=== PATIENT | male | born 1990 | race Hispanic/Latino ===

== ENCOUNTER 2024-10-16 14:41 | Emergency (ER) | payer SELFPAY ==
[~2024-10-16] VITALS: Ht 180.3 cm; Wt 86.2 kg
[2024-10-16] MEDS: FAMOTIDINE 20MG VIAL IV ONE (15:25)
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
[2024-10-16] MEDS ORDERED: PRED5TAB PO (16:26)
[2024-10-16] MEDS ORDERED: LORA10TA7 PO (16:26)
[2024-10-16] MEDS: 0.9%NACL 1000ML 1,000 ML IV ONE (16:35)
[2024-10-16 16:37] VITALS: BP 106/68; PULSE 81; RESP 16; TEMP 98.3; O2SAT 98
--- NOTE | 2024-10-16 16:37 | NUR ---
pt req completion of fluids and ready for dc
== END 2024-10-16 17:04 | disposition home or self-care (01) ==
LOC: EDH 14:41
DX: T78.40XA Allergy, unspecified, initial encounter (principal); T63.441A Toxic effect of venom of bees, accidental (unintentional), initial encounter; Y92.89 Other specified places as the place of occurrence of the external cause
CPT/HCPCS: 99284; 96374; 96375; J2919; J1200; J3490; J7030